=== PATIENT | female | born 1990 | race African-American/Black ===

== ENCOUNTER 2022-07-16 18:39 | Emergency (ER) | payer MEDICARE, MEDICAID, SELFPAY ==
--- NOTE | ~2022-07-16 | XR_ITS ---
EXAMINATION: XR chest 2V DATE: 07/16/2022 20:22 INDICATION: Altered mental status. TECHNIQUE: frontal and lateral views of the chest were obtained. COMPARISON: None FINDINGS: The lungs are clear with no focal airspace opacities, pulmonary edema, pleural effusion or pneumothor ax. The cardiomediastinal silhouette is normal. S-shaped thoracic scoliosis with mild spondylosis. IMPRESSION: 1. No acute cardiopulmonary disease. Reviewed, dictated and finalized at location A. ER SETTER
[2022-07-16 18:40] VITALS: BP 103/67; PULSE 105; RESP 20
--- NOTE | 2022-07-16 19:05 | ED.AMS ---
HPI - Altered Mental Status General Chief Complaint: Altered Mental Status <Oma Mejia PA-C - Last Filed: 07/17/22 01:20> Stated Complaint: AMS <Oma Mejia PA-C - Last Filed: 07/17/22 01:20> Time Seen by Provider: 07/16/22 18:53 <SONU Carpenter Last Filed: 07/17/22 01:20> History of Present Illness HPI narrative: Shanice is a 31-year-old female with a history of Down syndrome, Graves' disease, here with her mother over concerns of failure to thrive over the past 2 months. History provided by mother given patient's baseline mental status, which is nonverbal. Mother states that ZARA has lost 30 pounds in the past 2 months, has slowly had decreased interest in p.o., has been lethargic and not her usual self. She states that she brought her to the ED today because she had difficulty arousing the patient. Mother states that ZARA has Graves' disease and takes methimazole daily, in the past when she has been acting like that she has required adjustments to her medicine. Currently takes 5 mg methimazole. She follows with a insurance sales producer in [place], they are new to the area and have not yet established with a doctor. No fevers, chills, cough, vomiting, diarrhea. <Oma Mejia PA-C - Last Filed: 07/17/22 01:20> Related Data Allergies/Adverse Reactions: Allergies Allergy/AdvReac Type Severity Reaction Status Date / Time No Known Allergies Allergy Verified 07/16/22 18:47 <SONU Carpenter Last Filed: 07/17/22 01:20> Review of Systems Review of Systems: ROS unobtainable: Yes unobtainable due to mental status <SONU Carpenter Last Filed: 07/17/22 01:20> Exam Narrative: APPEARANCE: Down syndrome facies, active, alert, chewing on wristband, figetdy Head: Normocephalic and atraumatic. EYES: PERRLA/EOMI, conjunctivae clear NOSE: No nasal drainage EARS: slight eyelid swelling and exophthalmos bilaterally THROAT: Oropharynx is clear. Mucous membranes are moist. NECK: Supple. No adenopathy, no masses. RESPIRATORY: Airway patent, respirations nonlabored. Clear to auscultation bilaterally, no rales, rhonchi, wheezing. CARDIOVASCULAR: Regular rate and rhythm without murmurs, rubs, or gallops. ABDOMINAL: Normoactive bowel sounds. Soft, nontender, nondistended. No rebound tenderness or guarding. MUSCULOSKELETAL: Extremities are warm and well-perfused. Moves all extremities well. No edema. NEURO: Normal speech. No focal neurologic deficits. SKIN: Skin is warm and dry. No rashes. PSYCHIATRIC: Normal affect/mood. 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 I witnessed the patient's mother's interactions with staff. I agree with the assessment and plan as documented. <Ray Romero MD - Last Filed: 07/17/22 03:19> Vital Signs Vital signs: Vital Signs Pulse Rate 105 H 07/16/22 18:40 Respiratory Rate 20 07/16/22 18:40 Blood Pressure 103/67 07/16/22 18:40 Temperature 98.2 F 07/16/22 21:21 Pulse Rate 105 H 07/16/22 18:40 Respiratory Rate 20 07/16/22 18:40 Blood Pressure 103/67 07/16/22 18:40 Pulse Oximetry 98 07/16/22 21:21 <Oma Mejia PA-C - Last Filed: 07/17/22 01:20> Vital Signs Pulse Rate 105 H 07/16/22 18:40 Respiratory Rate 20 07/16/22 18:40 Blood Pressure 103/67 07/16/22 18:40 Temperature 98.2 F 07/16/22 21:21 Pulse Rate 105 H 07/16/22 18:40 Respiratory Rate 20 07/16/22 18:40 Blood Pressure 103/67 07/16/22 18:40 Pulse Oximetry 98 07/16/22 21:21 <Ray Romero MD - Last Filed: 07/17/22 03:19> MDM - Altered Mental Status MDM Narrative Medical decision making narrative: 31-year-old female with a history of Down syndrome and graves disease here with her mother for evaluation of altered mental status, weight loss, decreased p.o. ov
[2022-07-16 19:11] LABS: Basophils Percent Auto 1.4 % (0.2-1.2); Eosinophils Percent Auto 0.9 % (0-4.4); Hematocrit 37.7 % (37.0-47.0); Hemoglobin 12.1 g/dL (12.0-15.0); Immature Granulocyte Absolute 0.01 K/mm3 (0.00-0.031); Immature Granulocyte Percent A 0.5 % (0-0.5); Lymphocytes Absolute Auto 0.91 K/mm3 (0.9-3.2); Lymphocytes Percent Auto 42.9 % (18.3-44.2); Mean Corpuscular HGB Conc 32.1 g/dl (32-36); Mean Corpuscular Hemoglobin 27.1 pg (26-34); Mean Corpuscular Volume 84.3 fl (80-100); Mean Platelet Volume 8.6 fl (7.4-10.4); Monocytes Absolute Auto 0.3 K/mm3 (0.1-0.6); Monocytes Percent Auto 15.1 % (2.6-8.5); Neutrophils Absolute Auto 0.8 K/mm3 (1.3-6.7); Neutrophils Percent Auto 39.2 % (45.5-73.1); Platelet Count Result 317 k/mm3 (150-375); Red Blood Count 4.47 M/mm3 (4.2-5.4); Red Cell Distribution Width 14.1 % (11.5-14.5); White Blood Count 2.1 K/mm3 (4.5-10.0)
[2022-07-16 19:18] LABS: INR 1.1; Prothrombin Time 13.4 Seconds (11.1-14.7)
[2022-07-16 19:19] LABS: Partial Thromboplastin Time 29.6 SECONDS (22.3-36.8)
[2022-07-16 19:21] LABS: Alanine Aminotransferase 63 U/L (6-35); Albumin Level 3.5 g/dL (3.5-5.1); Alkaline Phosphatase 158 U/L (38-126); Anion Gap 3 mmol/L (8-16); Aspartate Amino Transferase 59 U/L (14-36); Bilirubin,Total 0.5 mg/dL (0.2-1.3); Blood Urea Nitrogen 6 mg/dL (7-17); Calcium 8.5 mg/dL (8.4-10.2); Carbon Dioxide 26 mmol/L (22-30); Chloride 109 mmol/L (98-107); Estimated CRCL calculation 164 ml/min; Estimated Glomerular Filt Rate > 60; Glucose 97 mg/dL (65-110); Potassium 3.7 mmol/L (3.4-5.0); Sodium 138 mmol/L (137-145)
[2022-07-16 19:52] LABS: Thyroid Stimulating Hormone < 0.015 uIU/mL (0.465-4.680)
[2022-07-16 20:14] LABS: Free T4 Free Thyroxine 4.08 ng/mL (0.78-2.19)
--- NOTE | 2022-07-16 20:55 | PC.NURSE ---
mom states that she doesn't want pt to be admitted because pt just needs her thyroid medication to be adjusted. states she hasn't been dealing with this for years. states she will call her doctor. Oma jasmine
[2022-07-16 21:21] VITALS: TEMP 36.8; O2SAT 98
--- NOTE | 2022-07-16 21:27 | PC.NURSE ---
pt signing out AMA per mom
--- NOTE | 2022-07-16 21:44 | PC.NURSE ---
mom at nurse's station being verbally abusive and yelling at this RN. Ask mom several times to go back to room and she refused to. Security at desk trying to redirect mom.
--- NOTE | 2022-07-16 22:40 | PC.NURSE ---
pt's mom refusing to give pt 5mg of methimazole. states What fuckiing sense does that make to give her 5mg when she takes that home obviously she needs more than that. what are you some fucking idiot? Explained to pt I would send provider in. pt continues to be verbally abusive. Oma provider aware that she is not going to take the 5mg. Oma states that pt will be discharged home and can take 10mg at home.
--- NOTE | 2022-07-16 22:50 | PC.NURSE ---
pt's mom back at the nursing desk being verbally aggressive to this RN. pt calling this RN stupid as bitches and yelling. Security notified and [employer] Tower Operator here to speak with pt
--- NOTE | 2022-07-16 23:06 | PC.NURSE ---
As mom was walking out to waiting room she tried to stop at nurses station to approach this geological engineering teacher had to redirect her. mom then states That's alright I have something for this hospital. Security escorted mom out.
--- NOTE | 2022-07-16 23:10 | PC.NURSE ---
Addendum entered by Jen Carnes RN 07/16/22 23:11: mom continues to be disruptive in waiting room. Original Note: pt continues to be disruptive in waiting room. Triage nurse Stephanie notified Security and they are going to contact police
== END 2022-07-16 23:13 | disposition home or self-care (01) ==
PROVIDERS: Emergency Medicine; Emergency Provider Physician Assistant
DX: R41.82 Altered mental status, unspecified (principal); E05.00 Thyrotoxicosis with diffuse goiter without thyrotoxic crisis or storm; Q90.9 Down syndrome, unspecified
CPT/HCPCS: 36415; 71046; 80053; 84439; 84443; 84480; 85025; 85610; 85730; 99283; A9270

== ENCOUNTER 2022-09-28 09:32 | Outpatient (CLI) | payer MEDICARE, MEDICAID, SELFPAY ==
--- NOTE | ~2022-09-28 | US_ITS ---
EXAMINATION: US abdomen limited DATE: 09/28/2022 10:02 INDICATION: Abnormal liver function tests. TECHNIQUE: Multiple grayscale and Doppler ultrasound images of the abdomen were obtained. COMPARISON: None FINDINGS: The pancreas is obscured by bowel gas. The liver is normal without focal lesion. There is n ormal flow in main portal vein. The gallbladder is normal in size. No gallstones or gallbladder wall thickening. There was no sonographic Bernardo sign. The common duct is normal and measures 4 mm. IMPRESSION: 1. Normal right upper quadrant ultrasound. Reviewed, dictated and finalized at location A.
== END 2022-09-28 09:33 | disposition home or self-care (01) ==
PROVIDERS: PCP Emergency Medicine; Visit Provider Emergency Medicine
DX: R74.8 Abnormal levels of other serum enzymes (principal)
CPT/HCPCS: 76705